=== PATIENT | female | born 1930 | race Caucasian/White ===

== ENCOUNTER → 2017-03-23 | Outpatient (CLI) | payer MEDICARE ==
[2015-06-14 10:52] VITALS: BP 142/91
[~2017-03-23] MED LIST: FERR-26 PO; GLIM1TAB2 PO; GLIM2TAB2 PO; MULTIVITAMIN PO; RIVA10TA PO
--- NOTE | 2017-03-23 12:53 | RAD ---
Indication: Left medial calf lump. Sonographic interrogation of the area of lump in the medial left calf was performed. There is a slightly echogenic mass at this location measuring 4.4 x 2.7 x 1.5 cm. This does contain some internal vascularity. This is nonspecific. No fluid collection is seen. Impression: Nonspecific, solid vascular mass at the area of the lump in the medial left calf. Malignancy cannot be excluded. MRI with and without intravenous contrast would be recommended for further evaluation.
== END | disposition home or self-care (01) ==
LOC: US 10:43
PROVIDERS: ATTEND Family Medicine
DX: C40.22 Malignant neoplasm of long bones of left lower limb (principal)
CPT/HCPCS: 76882

== ENCOUNTER 2018-08-30 11:21 | Inpatient (IN) | payer MEDICARE ==
[2018-08-30] VITALS (7 sets, daily range): BP systolic 103–161; BP diastolic 68–86
[~2018-08-30] VITALS: Ht 165.1 cm; Wt 54.5 kg
[~2018-08-30 11:21] MED LIST changes: -FERR-26 PO; +FERR325T14 PO
[2018-08-30 12:05] LABS: BASO # 0.1 x10^3/uL (0.0-0.2); BASO % 1 % (0-3); EOS # 0.1 x10^3/uL (0.0-0.7); EOS % 2 % (0-3); HEMATOCRIT 40.4 % (36.0-47.0); HEMOGLOBIN 13.5 g/dL (12.0-15.5); LYMPH # 1.8 x10^3/uL (1.0-4.8); LYMPH % 22 % (24-48); MEAN CORPUSCULAR HEMOGLOBIN 31 pg (25-35); MEAN CORPUSCULAR HGB CONC 33 g/dL (31-37); MEAN CORPUSCULAR VOLUME 94 fL (79-100); MONO % 12 % (0-9); NEUT # 5.3 x10^3uL (1.8-7.7); NEUT % 64 % (31-73); PLATELET COUNT 197 x10^3/uL (140-400); RED CELL DISTRIBUTION WIDTH 13.6 % (11.5-14.5); WHITE BLOOD COUNT 8.3 x10^3/uL (4.0-11.0)
[2018-08-30 12:27] LABS: ALBUMIN 3.5 g/dL (3.4-5.0); ALBUMIN/GLOBULIN RATIO 0.9 (1.0-1.7); CALCIUM 8.9 mg/dL (8.5-10.1); GFR 52.2; POTASSIUM 4.1 mmol/L (3.5-5.1); TOTAL BILIRUBIN 0.5 mg/dL (0.2-1.0); TOTAL PROTEIN 7.4 g/dL (6.4-8.2)
--- NOTE | 2018-08-30 13:16 | EKG ---
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
[2018-08-30] MEDS ORDERED: IPRA3AMP29 NEB (13:58)
[2018-08-30] MEDS ORDERED: INSU100I13 SQ (13:58)
[2018-08-30] MEDS ORDERED: IOHEXOL 300 MG/ML 75 ML VIAL. IV ONE (15:30)
[2018-08-30] MEDS ORDERED: DEXTROSE 50% 25 GM / 50ML DISP.SYRIN. IV PRN (16:15)
--- NOTE | 2018-08-30 17:02 | RAD ---
CT ANGIOGRAPHY CHEST Indication: Increased D-Dimer, SOA. Comparison: June 15, 2015 Technique: After intravenous contrast administration, CT imaging was performed of the chest. MIP reconstructions were obtained. Exposure: One or more of the following individualized dose reduction techniques were utilized for this examination: 1. Automated exposure control 2. Adjustment of the mA and/or kV according to patient size 3. Use of iterative reconstruction technique. FINDINGS: Pulmonary arteries:No evidence of significant pulmonary embolism. Thoracic aorta: Calcified. Mild pulsatility artifact. Tortuous. No evidence of aneurysm. Suboptimally opacified, could be difficult to exclude dissection. Thyroid gland:Visualized aspect is unremarkable. Lymph nodes:No significant enlargement Heart: Calcifications. Esophagus: Mild diffuse wall thickening similar to prior study. Large hiatal hernia. Pleural spaces: The posterior pleura is not completely included in the [id number] inferiorly. No large effusion. Pleural thickening at both lung apices has increased since the prior study. No lobar airspace consolidation. Lungs: Diffuse coarse reticulonodular opacities throughout both lungs are again identified, and have progressed since the prior study. This is somewhat more confluent in the subpleural location. Note that the posterior lung bases are not completely included in the [id number]-xz-[id number], inferiorly. Trachea and central airways: Patent Bones: Mild degenerative spondylosis. Upper abdomen: Slices through the upper abdomen are limited due to the technique . Large lesion in the left upper abdomen, measures slightly greater than fluid density, 23 Hounsfield units, with intermittent rim calcifications. Unchanged since prior study. Measures at least 12 cm. Partially visualized lesion at the posterior right kidney and upper left kidney measure fluid density and are likely cysts. IMPRESSION: 1. No evidence of a pulmonary embolism. 2. Diffuse coarse reticulonodular but predominantly interstitial markings in both lungs have progressed, compatible with worsening pulmonary fibrosis. This is now somewhat more confluent in a subpleural location. Component of superimposed acute pneumonitis is possible. There is worsening of pleural thickening as well. 3. Large upper abdominal mass or complex cyst is unchanged. Electronically signed by: Deondre Cespedes MD (08/30/2018 4:59 PM) [facility]
--- NOTE | 2018-08-30 17:08 | RAD ---
CHEST PA LATERAL Clinical indications: Shortness of air. COMPARISON: June 14, 2015. Findings: Diffuse chronic interstitial lung disease is seen mainly within the periphery which may be seen with interstitial pulmonary fibrosis. No new lung consolidation is evident. No pleural effusion or pneumothorax is seen. Retrocardiac hiatal hernia is evident. The heart size, pulmonary vasculature, mediastinum and both awilda are otherwise unremarkable. The osseous structures appear intact. Impression: Interstitial pulmonary fibrosis. Hiatal hernia. Electronically signed by: Basil Lomeli MD (08/30/2018 5:05 PM) [facility]
[2018-08-30] MEDS ORDERED: GLIMEPIRIDE 2 MG TABLET PO SCH (21:00)
[2018-08-31 05:40] VITALS: BP 121/74
[2018-08-31 06:11] LABS: BASO # 0.1 x10^3/uL (0.0-0.2); BASO % 1 % (0-3); EOS # 0.2 x10^3/uL (0.0-0.7); EOS % 3 % (0-3); HEMATOCRIT 38.7 % (36.0-47.0); HEMOGLOBIN 12.8 g/dL (12.0-15.5); LYMPH # 2.1 x10^3/uL (1.0-4.8); LYMPH % 27 % (24-48); MEAN CORPUSCULAR HEMOGLOBIN 31 pg (25-35); MEAN CORPUSCULAR HGB CONC 33 g/dL (31-37); MEAN CORPUSCULAR VOLUME 95 fL (79-100); MONO # 1.3 x10^3/uL (0.0-1.1); MONO % 17 % (0-9); NEUT # 4.2 x10^3uL (1.8-7.7); NEUT % 53 % (31-73); PLATELET COUNT 181 x10^3/uL (140-400); RED BLOOD COUNT 4.09 x10^6/uL (3.50-5.40); RED CELL DISTRIBUTION WIDTH 14.2 % (11.5-14.5); WHITE BLOOD COUNT 7.9 x10^3/uL (4.0-11.0)
[2018-08-31 06:16] LABS: CALCIUM 8.2 mg/dL (8.5-10.1); CREATININE 0.8 mg/dL (0.6-1.0); GFR 67.5; POTASSIUM 3.5 mmol/L (3.5-5.1)
[2018-08-31] MEDS ORDERED: methylPREDNISolone SOD SUCC PF 40 MG/ML VIAL. IV SCH (09:00)
[2018-08-31] MEDS ORDERED: GLIMEPIRIDE 2 MG TABLET PO SCH (09:00)
[2018-08-31] MEDS ORDERED: FERROUS SULFATE 325 MG TABLET. PO SCH (09:00)
[2018-08-31] MEDS ORDERED: RIVAROXABAN 10 MG TABLET. PO SCH (09:00)
[2018-08-31 10:29] VITALS: BP_SYST 109; BP_DIAS 69; BP_DIAS 74
[2018-08-31] MEDS ORDERED: METH4TAB2 PO (11:00)
--- NOTE | 2018-08-31 21:12 | DS ---
DATE OF DISCHARGE: 08/31/2018 HOSPITAL COURSE: The patient came in with acute exacerbation of COPD. She had failed outpatient therapy, required IV Solu-Medrol. She received that and made good progress. Her blood pressure is 110/70 and oxygen saturation varied; however, she was using accessory muscles when she first came in, but that was relieved with the use of IV Solu-Medrol, aggressive pulmonary toilet. The patient made good progress during the rest of her hospitalization. She was discharged home. She had a CTA, which again showed diffuse pulmonary reticular nodular interstitial markings, worsening of pulmonary fibrosis. She was warned about this and using her nebulizer on a regular basis. IMPRESSION: Acute on top of chronic COPD, acute on top of chronic respiratory distress, pulmonary fibrosis. The patient will be discharged home on a tapering dose of prednisone. Follow up in 7-10 days in the office or sooner as needed. Phone number was given to her and she will be on a diabetic diet. DAMON ST MD DR: NAV/jojo JOB#: [id number] / [id number]
== END 2018-08-31 11:30 | disposition home or self-care (01) | DRG 192 ==
LOC: 1 SOUTH 11:21
PROVIDERS: ADMIT Family Medicine; ATTEND Family Medicine
DX: J44.1 Chronic obstructive pulmonary disease with (acute) exacerbation (principal); J84.10 Pulmonary fibrosis, unspecified; R06.03 Acute respiratory distress; E11.65 Type 2 diabetes mellitus with hyperglycemia; I10 Essential (primary) hypertension; Z23 Encounter for immunization; Z90.710 Acquired absence of both cervix and uterus; Z79.899 Other long term (current) drug therapy
CPT/HCPCS: 36415; 71046; 71275; 80048; 80053; 82550; 82947; 84443; 84484; 85025; 85379; 90471; 90756; 93005; J2920; Q9967; Q2035

== ENCOUNTER 2018-09-12 15:39 | Inpatient (IN) | payer MEDICARE ==
[~2018-09-12] VITALS: Ht 167.6 cm; Wt 53.2 kg
[~2018-09-12 15:39] MED LIST changes: +INSU100I13 SQ; +IPRA3AMP29 NEB; +METH4TAB2 PO
[2018-09-12 16:56] LABS: BASO % 0 % (0-3); EOS # 0.2 x10^3/uL (0.0-0.7); EOS % 2 % (0-3); HEMATOCRIT 41.9 % (36.0-47.0); HEMOGLOBIN 14.1 g/dL (12.0-15.5); LYMPH # 2.3 x10^3/uL (1.0-4.8); LYMPH % 22 % (24-48); MEAN CORPUSCULAR HEMOGLOBIN 32 pg (25-35); MEAN CORPUSCULAR HGB CONC 34 g/dL (31-37); MEAN CORPUSCULAR VOLUME 94 fL (79-100); MONO # 1.2 x10^3/uL (0.0-1.1); MONO % 11 % (0-9); NEUT # 6.8 x10^3uL (1.8-7.7); NEUT % 65 % (31-73); PLATELET COUNT 191 x10^3/uL (140-400); RED BLOOD COUNT 4.45 x10^6/uL (3.50-5.40); RED CELL DISTRIBUTION WIDTH 13.8 % (11.5-14.5); WHITE BLOOD COUNT 10.5 x10^3/uL (4.0-11.0)
[2018-09-12 17:10] LABS: BACTERIA,URINE FEW /HPF (0-FEW); BILIRUBIN,URINE NEG (NEG); CLARITY,URINE HAZY; COLOR,URINE YELLOW; GLUCOSE,URINE NEG (NEG); NITRITE,URINE NEG (NEG); RBC,URINE RARE /HPF (0-2); SQUAMOUS EPITHELIAL CELL,UR FEW /LPF; UROBILINOGEN,URINE 0.2 mg/dL (0.2 mg/dL); WBC,URINE RARE /HPF (0-4)
[2018-09-12 17:11] LABS: AMORPHOUS SEDIMENT,UR PRESENT /HPF
--- NOTE | 2018-09-12 17:13 | RAD ---
CHEST PA LATERAL History: SOA Comparison: Two-view chest 08/30/2018. Findings: Atherosclerotic thoracic aorta. Mitral annular calcification. Small hiatal hernia. Cardiac size is normal. Peripheral predominant parenchymal opacities are unchanged. Lungs are hyperexpanded. No acute airspace disease is identified. No pneumothorax is seen. Minimal blunting of the right posterior costophrenic sulcus may be due to trace fluid or pleural thickening. Compression fracture of lumbar vertebral body, not definitely seen on prior study. Juxtarenal IVC filter. IMPRESSION: 1. Moderate pulmonary fibrosis. 2. Lumbar spine compression fracture. Correlate to any point tenderness. Electronically signed by: Khai Bloom MD (09/12/2018 5:09 PM) [id number]
[2018-09-12 17:19] LABS: ALBUMIN 3.3 g/dL (3.4-5.0); ALBUMIN/GLOBULIN RATIO 0.8 (1.0-1.7); CALCIUM 9.1 mg/dL (8.5-10.1); CREATININE 1.1 mg/dL (0.6-1.0); GFR 46.8; POTASSIUM 3.9 mmol/L (3.5-5.1); TOTAL BILIRUBIN 0.5 mg/dL (0.2-1.0); TOTAL PROTEIN 7.4 g/dL (6.4-8.2)
--- NOTE | 2018-09-12 17:20 | EKG ---
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
--- NOTE | 2018-09-12 17:45 | PHYS DOC ---
Past History Past Medical History: Anemia, COPD Adult General Chief Complaint Chief Complaint: shortness of breath HPI HPI Patient is a 87-year-old female patient who brought in by EMS because of shortness of breath. She complaining of constant shortness of breath that is going on for 3 weeks without chest pain, fever and chills, focal neuro deficit, nausea and vomiting. Patient had recent hospitalization for the same problem with negative evaluation for PE. Review of Systems Review of Systems Constitutional: Denies fever or chills [] Eyes: Denies change in visual acuity, redness, or eye pain [] HENT: Denies nasal congestion or sore throat [] Respiratory: Reports shortness of breath. Cardiovascular: No additional information not addressed in HPI [] GI: Denies abdominal pain, nausea, vomiting, bloody stools or diarrhea [] : Denies dysuria or hematuria [] Musculoskeletal: Denies back pain or joint pain [] Integument: Denies rash or skin lesions [] Neurologic: Denies headache, focal weakness or sensory changes [] Endocrine: Denies polyuria or polydipsia [] All other systems were reviewed and found to be within normal limits, except as documented in this note. Allergies Allergies Allergies Coded Allergies Type Severity Reaction Last Updated Verified No Known Allergies Allergy Unknown 06/13/15 Yes Physical Exam Physical Exam Constitutional: Well developed, no acute distress, non-toxic appearance. [] HENT: Normocephalic, atraumatic, oropharynx moist, no oral exudates, nose normal. [] Eyes: PERRLA, EOMI, conjunctiva normal, no discharge. [] Neck: Normal range of motion, no tenderness, supple, no stridor. [] Cardiovascular:Heart rate regular rhythm, no murmur [] Lungs & Thorax: Decrease of air movement in bilateral bases. Abdomen: Bowel sounds normal, soft, no tenderness, no masses, no pulsatile masses. [] Skin: Warm, dry, no erythema, no rash. [] Back: No tenderness, no CVA tenderness. [] Extremities: No tenderness, no cyanosis, no clubbing, ROM intact, no edema. [] Neurologic: Alert and oriented X 3, normal motor function, normal sensory function, no focal deficits noted. [] Psychologic: Affect normal, judgement normal, mood normal. [] Current Patient Data Vital Signs Vital Signs Date Time Temp Pulse Resp B/P (MAP) Pulse Ox O2 Delivery O2 Flow Rate FiO2 09/12/18 16:52 97.6 65 18 99 Room Air Lab Results Laboratory Tests Test 09/12/18 16:35 09/12/18 16:49 White Blood Count 10.5 x10^3/uL (4.0-11.0) Red Blood Count 4.45 x10^6/uL (3.50-5.40) Hemoglobin 14.1 g/dL (12.0-15.5) Hematocrit 41.9 % (36.0-47.0) Mean Corpuscular Volume 94 fL (79-100) Mean Corpuscular Hemoglobin 32 pg (25-35) Mean Corpuscular Hemoglobin Concent 34 g/dL (31-37) Red Cell Distribution Width 13.8 % (11.5-14.5) Platelet Count 191 x10^3/uL (140-400) Neutrophils (%) (Auto) 65 % (31-73) Lymphocytes (%) (Auto) 22 % (24-48) L Monocytes (%) (Auto) 11 % (0-9) H Eosinophils (%) (Auto) 2 % (0-3) Basophils (%) (Auto) 0 % (0-3) Neutrophils # (Auto) 6.8 x10^3uL (1.8-7.7) Lymphocytes # (Auto) 2.3 x10^3/uL (1.0-4.8) Monocytes # (Auto) 1.2 x10^3/uL (0.0-1.1) H Eosinophils # (Auto) 0.2 x10^3/uL (0.0-0.7) Basophils # (Auto) 0.0 x10^3/uL (0.0-0.2) D-Dimer (Brittaney) 0.83 mg/L (0.00-0.50) H Sodium Level 140 mmol/L (136-145) Potassium Level 3.9 mmol/L (3.5-5.1) Chloride Level 104 mmol/L (98-107) Carbon Dioxide Level 25 mmol/L (21-32) Anion Gap 11 (6-14) Blood Urea Nitrogen 14 mg/dL (7-20) Creatinine 1.1 mg/dL (0.6-1.0) H Estimated GFR (Cockcroft-Gault) 46.8 BUN/Creatinine Ratio 13 (6-20) Glucose Level 221 mg/dL (70-99) H Lactic Acid Level 2.0 mmol/L (0.4-2.0) Calcium Level 9.1 mg/dL (8.5-10.1) Total Bilirubin 0.5 mg/dL (0.2-1.0) Aspartate Amino Transferase (AST) 16 U/L (15-37) Alanine Aminotransferase (ALT) 21 U/L (14-59) Alkaline Phosphatase 88 U/L (46-116) Creatine Kinase 54 U/L (26-192) Troponin I Quantitative < 0.017 ng/mL (0-0.055) OL-Mdk-G-Type Natriuretic Peptide 407 pg/mL (0-449) Total Protein 7.4 g/dL (6.4-8.2) Albumin 3.3 g/dL (3.4-5.0) L Albumin/Globulin Ratio 0.8 (1.0-1.7) L Urine Collection Type Unknown Urine Color Yellow Urine Clarity Hazy Urine pH 8.5 Urine Specific [place] 1.015 Urine Protein Neg (NEG-TRACE) Urine Glucose (UA) Neg mg/dL (NEG) Urine Ketones (Stick) Neg mg/dL (NEG) Urine Blood Neg (NEG) Urine Nitrite Neg (NEG) Urine Bilirubin Neg (NEG) Urine Urobilinogen Dipstick 0.2 mg/dL (0.2 mg/dL) Urine Leukocyte Esterase Neg (NEG) Urine RBC Rare /HPF (0-2) Urine WBC Rare /HPF (0-4) Urine Squamous Epithelial Cells Few /LPF Urine Amorphous Sediment Present /HPF Urine Bacteria Few /HPF (0-FEW) EKG EKG EKG interpreted by me. EKG at 1711 showed normal sinus rhythm at rate of 68, no acute ST and T-wave abnormalities. Radiology/Procedures Radiology/Procedures [address] [address] IMAGING REPORT Signed PATIENT: JODI JACKSON ACCOUNT: [id number] : 1930 LOCATION: ER AGE: 87 SEX: F EXAM STATUS: REG ER ORD. PHYSICIAN: JUAN DIEGO GUNN MD REASON: shortness of breath PROCEDURE: CHEST PA & LATERAL CHEST PA LATERAL History: SOA Comparison: Two-view chest 08/30/2018. Findings: Atherosclerotic thoracic aorta. Mitral annular calcification. Small hiatal hernia. Cardiac size is normal. Peripheral predominant parenchymal opacities are unchanged. Lungs are hyperexpanded. No acute airspace disease is identified. No pneumothorax is seen. Minimal blunting of the right posterior costophrenic sulcus may be due to trace fluid or pleural thickening. Compression fracture of lumbar vertebral body, not definitely seen on prior study. Juxtarenal IVC filter. IMPRESSION: 1. Moderate pulmonary fibrosis. 2. Lumbar spine compression fracture. Correlate to any point tenderness. Electronically signed by: Khai Bloom MD (09/12/2018 5:09 PM) [id number] DICTATED AND SIGNED BY: KHAI BLOOM MD DATE: 09/12/18 1700 CC: DAMON ST MD; JUAN DIEGO GUNN MD ~ Course & Med Decision Making Course & Med Decision Making Pertinent Labs and Imaging studies reviewed. (See chart for details) Evaluation of patient in ER showed 87-year-old female patient who lives at home by herself and brought in by EMS because of shortness of breath. Patient has chronic pulmonary fibrosis. Dr. St accepted admission at 1740. Dragon Disclaimer Radha Disclaimer This electronic medical record was generated, in whole or in part, using a voice recognition dictation system. Departure Departure: Impression: Primary Impression: Shortness of breath Additional Impressions: Chronic fibrosis of lung Compression fracture Uncontrolled diabetes mellitus Disposition: ADMITTED INPATIENT (at) Admitting Physician: Damon St (accepted admission at 1740) Condition: IMPROVED Referrals: DAMON ST MD (PCP) Problem Qualifiers JUAN DIEGO GUNN MD Sep 12, 2018 17:44
[2018-09-12 19:45] VITALS: BP 150/71
[2018-09-12 23:25] VITALS: BP 121/69
[2018-09-13 05:20] VITALS: BP 119/71
[2018-09-13] MEDS ORDERED: IPRATRPIUM/ALBUTEROL 0.5/2.5MG 3 ML NEBU. NEB SCH (07:30)
[2018-09-13] MEDS ORDERED: GLIMEPIRIDE 2 MG TABLET PO SCH ×2 (09:00→21:00)
[2018-09-13] MEDS ORDERED: RIVAROXABAN 15 MG TABLET. PO SCH (09:00)
[2018-09-13] MEDS ORDERED: predniSONE 20 MG TABLET PO SCH (09:00)
[2018-09-13] MEDS ORDERED: MULTIVITAMIN with MINERAL TABLET. PO SCH (09:00)
[2018-09-13] MEDS ORDERED: FERROUS SULFATE 325 MG TABLET. PO SCH (09:00)
[2018-09-13 11:27] VITALS: BP 124/78
--- NOTE | 2018-09-13 11:28 | HP ---
ADMIT DATE: 09/12/2018 HISTORY OF PRESENT ILLNESS: This 87-year-old female came in through the Emergency Room apparently increased shortness of breath, complaining of shortness of breath for 3 weeks without chest pain. The patient has a history of severe pulmonary fibrosis. She was brought in, found to have some use of accessory muscles, and as a result of this, the patient was admitted to the hospital for acute exacerbation of COPD with pulmonary fibrosis. PAST MEDICAL HISTORY: Includes that of esophageal stretching x 3, cataracts, tonsillectomy, cardiac surgery, anemia, vena cava filter in 2006, chronic left leg pain, pulmonary fibrosis, history of histoplasmosis, cholecystectomy, D and C, hysterectomy and oophorectomy, osteoporosis, carpal tunnel release of right hand, diabetes, anemia. Influenza and pneumococcal vaccinations are up-to-date. FAMILY HISTORY: Mother with diabetes. Brother with cancer. ALLERGIES: No known allergies. MEDICATIONS: Include DuoNeb treatments, ferrous sulfate, Xarelto 15 mg daily, Lantus, glyburide, Centrum and alike. CODE STATUS: The patient is a full code. SOCIAL HISTORY: Denies smoking, alcohol, or drug use. REVIEW OF SYSTEMS: The patient otherwise outside of her chest pain is unremarkable. The patient has some mild shortness of breath as noted at resting and has extreme difficulty with walking. In any case, the patient will continue to be monitored accordingly. PHYSICAL EXAMINATION: VITAL SIGNS: Blood pressure 120/70, respiratory rate 20, pulse 80, afebrile. HEENT: The patient's head was atraumatic, normocephalic. Eyes: PERRLA without jaundice. Mouth and throat were normal. NECK: Supple. LUNGS: Poor breath sounds throughout. CARDIOVASCULAR: Regular sinus rhythm, S1-S2, without murmur, rub, thrill, or extra heart sound. ABDOMEN: Soft, nontender, protuberant. EXTREMITIES: No clubbing, cyanosis, or edema. NEUROLOGIC: The patient was alert and oriented x 3. IMPRESSION AND PLAN: 1. Acute chronic obstructive pulmonary disease, acute respiratory distress, the patient using accessory muscles, pulmonary fibrosis, severe. The patient otherwise resting fairly comfortably. Continue aggressive pulmonary toilet. We will start her on steroids. She has had previous CTA here within the last 6 weeks, which was negative. 2. Type 2 diabetes. Continue to monitor the patient and accordingly make further evaluation on her as indicated. DAMON ST MD DR: NAV/jojo JOB#: [id number] / [id number]
[2018-09-13] MEDS ORDERED: INSULIN GLARGINE 300 UNITS/3 ML INSULN.PEN. SQ SCH (21:00)
== END 2018-09-13 13:13 | disposition left against medical advice (07) | DRG 191 ==
LOC: ER 15:39 → 1 SOUTH 17:48
PROVIDERS: ADMIT Family Medicine; ATTEND Family Medicine
DX: J44.1 Chronic obstructive pulmonary disease with (acute) exacerbation (principal); M48.56XA Collapsed vertebra, not elsewhere classified, lumbar region, initial encounter for fracture; J84.10 Pulmonary fibrosis, unspecified; E11.65 Type 2 diabetes mellitus with hyperglycemia; M81.0 Age-related osteoporosis without current pathological fracture; Z53.21 Procedure and treatment not carried out due to patient leaving prior to being seen by health care provider; Z80.9 Family history of malignant neoplasm, unspecified; Z83.3 Family history of diabetes mellitus; Z90.710 Acquired absence of both cervix and uterus; Z90.49 Acquired absence of other specified parts of digestive tract; Z79.899 Other long term (current) drug therapy; R06.03 Acute respiratory distress
CPT/HCPCS: 36415; 71046; 80053; 81001; 82550; 82947; 83605; 83880; 84484; 85025; 85379; 87040; 93005; 94618; J1815; J7512; 99285-25